=== PATIENT | female | born 1990 | race Caucasian/White ===

== ENCOUNTER 2025-05-08 12:28 | Emergency (ER) | payer MEDICAID ==
[~2025-05-08] VITALS: Ht 152.4 cm; Wt 63.7 kg
[2025-05-08] MEDS ORDERED: LORazepam 2 MG/ML VIAL ONE (12:54)
[2025-05-08] MEDS: SODIUM CHLORIDE 0.9% 1,000 ML IV ONE (13:01)
[2025-05-08] MEDS: MIDAZOLAM HCL 5 MG/ML VIAL IM ONE (13:03)
[2025-05-08] MEDS: LORazepam 2 MG/ML VIAL IVP ONE ×3 (13:03→13:18)
[2025-05-08] MEDS: LevETIRAcetam 1,000 MG in DEXTROSE 5%-WATER 100 ML IV ONE (13:11)
[2025-05-08 13:15] LABS: PLATELET COUNT (AUTO) 317 K/uL (150-450); RED BLOOD CELL COUNT(AUTO) 5.01 MIL/uL (4.00-5.20); RED CELL DISTRIBUTION WIDTH 14.3 % (11.5-14.5); WHITE BLOOD COUNT (AUTO) 8.4 K/uL (4.5-11.0)
[2025-05-08 13:26] LABS: CALCIUM, TOTAL 9.1 mg/dL (8.8-10.5); CREATININE 0.84 mg/dL (0.60-1.30); GLOMERULAR FILTR. RATE CALC > 60 mL/min (>60); GLUCOSE,RANDOM 111 mg/dL (70-110); SODIUM SERUM 144 mmol/L (136-145); UREA NITROGEN, BLOOD 11 mg/dL (7-18)
[2025-05-08] MEDS: LevETIRAcetam 2,000 MG in DEXTROSE 5%-WATER 250 ML IV ONE (13:27)
[2025-05-08] MEDS ORDERED: PHENobarbital SODIUM 65 MG/ML VIAL IVP ONE (13:45)
[2025-05-08] MEDS ORDERED: ROCURONIUM BROMIDE 10 MG/ML 5 ML VIAL ONE (13:54)
[2025-05-08] MEDS ORDERED: ETOMIDATE 2 MG/ML 10 ML VIAL ONE (13:54)
[2025-05-08 14:13] VITALS: PULSE 110; RESP 18; O2SAT 94
[2025-05-08] MEDS ORDERED: MIDAZOLAM HCL 100 MG in SODIUM CHLORIDE 0.9% 180 ML IV PRN (14:15)
[2025-05-08] MEDS: PHENOBARBITAL SODIUM IV ONE (14:23)
[2025-05-08] MEDS: SODIUM CHLORIDE 0.9% IV ONE (14:23)
[2025-05-08 14:47] LABS: ABG BASE EXCESS -5.2 mmol/L (-2.0-3.0); ABG CARBOXYHEMOGLOBIN 0.6 % (0.5-1.5); ABG HCO3 20.8 mmol/L (21.0-28.0); ABG METHEMOGLOBIN 1.1 % (0.0-1.5); ABG OXYGEN CONTENT 15.9 mL/dL (15.0-23.0); ABG OXYGEN SATURATION 94.6 % (94.0-98.0); ABG OXYHEMOGLOBIN 93.0 % (94.0-98.0); ABG PCO2 32 mmHg (32.0-45.0); ABG PH 7.401 (7.350-7.450); ABG TOTAL HEMOGLOBIN 12.1 G/dL (12.0-16.0); FRACTIONATED INSPIRED OXYGEN 60.0 % (21-100.0); PO2, ARTERIAL BG 72.5 mmHg (83.0-108.0); SOURCE, BLOOD GAS ARTERIAL; TEMPERATURE, FAHRENHEIT, BG 98.6 FAHREN (96.0-98.6)
[2025-05-08 14:49] LABS: ALLEN TEST, BLOOD GAS Positive; O2 DEVICE,BLOOD GAS VENTILATOR (ROOM AIR); PATIENT RATE, BG 18.0 min.; PEEP,BG 5 cm H2O; SET RATE, BG 18.0 min.; SITE, BLOOD GAS RT RADIAL; SPONTANEOUS VT, BG 336 ml; VT, ABG 380 ml
[2025-05-08] MEDS: MIDAZOLAM HCL 100 MG in SODIUM CHLORIDE 0.9% 180 ML IV PRN (14:49)
[2025-05-08] MEDS: FentaNYL CIT 1000MCG/0.9% NACL 100 ML IV PRN (14:49)
[2025-05-08] MEDS: PYRIDOXINE HCL 100 MG/ML VIAL IVP ONE (14:53)
[2025-05-08 15:18] LABS: PH,URINE DRUG SCREEN 6.5 (5.0-8.0)
[2025-05-08 15:22] LABS: ALCOHOL, URINE DRUG SCREEN NEGATIVE (NEGATIVE); AMPHET/METH SCREEN,URINE NEGATIVE (NEGATIVE); BARBITURATE SCREEN, URINE POSITIVE (NEGATIVE); CANNABINOID SCREEN,URINE POSITIVE (NEGATIVE); COCAINE SCREEN,URINE NEGATIVE (NEGATIVE); METHADONE SCREEN, URINE NEGATIVE (NEGATIVE)
[2025-05-08 16:20] VITALS: PULSE 81; RESP 18; O2SAT 100
[2025-05-08 19:08] VITALS: BP 135/93; PULSE 80; RESP 18; TEMP 98.4; O2SAT 98
== END 2025-05-08 20:33 | disposition short-term general hospital (02) ==
LOC: EMS 12:32
DX: G40.901 Epilepsy, unspecified, not intractable, with status epilepticus (principal); F13.239 Sedative, hypnotic or anxiolytic dependence with withdrawal, unspecified
CPT/HCPCS: 99291; 31500; 96365; 96366; 71045; 70450; 96375; 96367; 80048; 82550; 84703; 85025; 36415; 82805; 93005; 96368; 96372; 80307; J3490 ×2; J3010; J2060; J2560; J3415; J7060 ×2; J7050 ×2; J2250; J0712; 94002

== ENCOUNTER 2025-06-26 10:56 | Emergency (ER) | payer MEDICAID ==
[~2025-06-26] VITALS: Ht 152.4 cm; Wt 59.1 kg
[2025-06-26 11:32] VITALS: O2SAT 100
[2025-06-26 13:00] LABS: PLATELET COUNT (AUTO) 266 K/uL (150-450); RED BLOOD CELL COUNT(AUTO) 4.50 MIL/uL (4.00-5.20); RED CELL DISTRIBUTION WIDTH 14.1 % (11.5-14.5); WHITE BLOOD COUNT (AUTO) 8.5 K/uL (4.5-11.0)
[2025-06-26 13:01] LABS: HCG,QUAL URINE POSITIVE (NEGATIVE)
[2025-06-26 13:02] LABS: APPEARANCE,URINE HAZY (CLEAR); GLUCOSE, URINE (UA) NEGATIVE (NEGATIVE); LEUKOCYTE ESTERASE ,URINE LARGE (NEGATIVE); NITRATE,URINE NEGATIVE (NEGATIVE); OCCULT BLOOD,URINE TRACE (NEGATIVE); SPECIFIC GRAVITIY, URINE 1.039 (1.003-1.030)
[2025-06-26 13:07] LABS: CALCIUM OXALATE CRYSTALS,UR Many /LPF (None Seen); SQUAMOUS EPITHELIAL CELL,UR Many /LPF (None Seen)
[2025-06-26 14:36] VITALS: BP 100/56; PULSE 65; RESP 16; TEMP 98.1
== END 2025-06-26 14:41 | disposition home or self-care (01) ==
LOC: EMS 10:59
DX: O20.9 Hemorrhage in early pregnancy, unspecified (principal); O99.321 Drug use complicating pregnancy, first trimester; F13.10 Sedative, hypnotic or anxiolytic abuse, uncomplicated; F12.90 Cannabis use, unspecified, uncomplicated; F14.90 Cocaine use, unspecified, uncomplicated; N89.8 Other specified noninflammatory disorders of vagina; Z88.0 Allergy status to penicillin; Z90.49 Acquired absence of other specified parts of digestive tract; Z3A.01 Less than 8 weeks gestation of pregnancy
CPT/HCPCS: 81001; 84702; 84703; 85025; 86901; 87086; 99283

== ENCOUNTER 2025-08-02 10:47 | Emergency (ER) | payer MEDICAID ==
[~2025-08-02] VITALS: Ht 152.4 cm; Wt 56.4 kg
[2025-08-02] MEDS ORDERED: CLON-598 PO (11:12)
[2025-08-02 11:52] LABS: PLATELET COUNT (AUTO) 279 K/uL (150-450); RED BLOOD CELL COUNT(AUTO) 4.67 MIL/uL (4.00-5.20); RED CELL DISTRIBUTION WIDTH 12.6 % (11.5-14.5); WHITE BLOOD COUNT (AUTO) 5.9 K/uL (4.5-11.0)
[2025-08-02 11:59] LABS: CALCIUM, TOTAL 9.1 mg/dL (8.8-10.5); CREATININE 0.45 mg/dL (0.60-1.30); GLOMERULAR FILTR. RATE CALC > 60 mL/min (>60); GLUCOSE,RANDOM 91 mg/dL (70-110); SODIUM SERUM 136 mmol/L (136-145); UREA NITROGEN, BLOOD 7 mg/dL (7-18)
[2025-08-02 14:37] LABS: APPEARANCE,URINE HAZY (CLEAR); GLUCOSE, URINE (UA) NEGATIVE (NEGATIVE); LEUKOCYTE ESTERASE ,URINE SMALL (NEGATIVE); NITRATE,URINE NEGATIVE (NEGATIVE); OCCULT BLOOD,URINE NEGATIVE (NEGATIVE); SPECIFIC GRAVITIY, URINE 1.033 (1.003-1.030)
[2025-08-02 15:19] LABS: SQUAMOUS EPITHELIAL CELL,UR Many /LPF (None Seen)
[2025-08-02 15:37] VITALS: TEMP 98.1
[2025-08-02 16:17] VITALS: BP 111/65; PULSE 71; RESP 18; O2SAT 99
== END 2025-08-02 16:18 | disposition home or self-care (01) ==
LOC: EMS 10:49
DX: O26.891 Other specified pregnancy related conditions, first trimester (principal); O99.341 Other mental disorders complicating pregnancy, first trimester; O99.321 Drug use complicating pregnancy, first trimester; F41.9 Anxiety disorder, unspecified; F31.9 Bipolar disorder, unspecified; F12.90 Cannabis use, unspecified, uncomplicated; R10.20 Pelvic and perineal pain unspecified side; Z88.0 Allergy status to penicillin; Z3A.09 9 weeks gestation of pregnancy; Z90.49 Acquired absence of other specified parts of digestive tract
CPT/HCPCS: 76801; 80048; 81001; 84702; 85025; 86901; 87077; 87086; 99284